=== PATIENT | female | born 1960 | race African-American/Black ===

== ENCOUNTER 2025-06-14 23:47 | Observation (INO) | payer SELFPAY ==
[~2025-06-14] VITALS: Ht 162.6 cm; Wt 90.9 kg
[2025-06-15 00:22] LABS: COVID AG,FIA SOURCE NASAL SWAB
[2025-06-15 00:48] LABS: SARS-COV2 (COVID) ANTIGEN,FIA Negative (Negative)
[2025-06-15 00:51] LABS: INFLUENZA TYPE A NEGATIVE FOR TYPE A (NEGATIVE); INFLUENZA TYPE B NEGATIVE FOR TYPE B (NEGATIVE)
[2025-06-15 01:27] LABS: PLATELET COUNT (AUTO) 371 K/uL (150-450); RED BLOOD CELL COUNT(AUTO) 4.95 MIL/uL (4.00-5.20); RED CELL DISTRIBUTION WIDTH 15.3 % (11.5-14.5); WHITE BLOOD COUNT (AUTO) 9.1 K/uL (4.5-11.0)
[2025-06-15 01:35] LABS: CALCIUM, TOTAL 8.9 mg/dL (8.8-10.5); CREATININE 0.79 mg/dL (0.60-1.30); GLOMERULAR FILTR. RATE CALC > 60 mL/min (>60); GLUCOSE,RANDOM 109 mg/dL (70-110); SODIUM SERUM 139 mmol/L (136-145); UREA NITROGEN, BLOOD 20 mg/dL (7-18)
[2025-06-15] MEDS: BENZONATATE 100 MG CAPSULE PO ONE (01:39)
[2025-06-15 01:44] LABS: TROPONIN I-HIGH SENSITIVITY 6 ng/L (<51)
[2025-06-15] MEDS ORDERED: MAGNESIUM HYDROXIDE SUSPENSION 30 ML UDCUP PO PRN (05:45)
[2025-06-15] MEDS ORDERED: ACETAMINOPHEN 325 MG TABLET PO PRN (05:45)
[2025-06-15] MEDS ORDERED: ONDANSETRON HCL 4 MG/2 ML VIAL IVP PRN (05:45)
[2025-06-15 06:27] LABS: APPEARANCE,URINE CLEAR (CLEAR); GLUCOSE, URINE (UA) NEGATIVE (NEGATIVE); LEUKOCYTE ESTERASE ,URINE SMALL (NEGATIVE); NITRATE,URINE NEGATIVE (NEGATIVE); OCCULT BLOOD,URINE NEGATIVE (NEGATIVE); SPECIFIC GRAVITIY, URINE 1.016 (1.003-1.030)
[2025-06-15 07:14] LABS: SQUAMOUS EPITHELIAL CELL,UR Few /LPF (None Seen)
[2025-06-15 07:20] VITALS: BP 176/81; PULSE 85; RESP 19; TEMP 98; O2SAT 97
[2025-06-15] MEDS: HEPARIN SODIUM,PORCINE 5,000 UNITS/ML VIAL SQ SCH (07:36)
[2025-06-15] MEDS ORDERED: AMLO-257 PO (07:47)
[2025-06-15] MEDS: FAMOTIDINE 20 MG TABLET PO SCH (08:49)
[2025-06-15] MEDS: CefTRIAXone 1 GM/DEXTROSE 50 ML IV SCH (10:00)
[2025-06-15] MEDS ORDERED: CIPR250T6 PO (10:21)
[2025-06-15] MEDS ORDERED: SODIUM CHLORIDE 0.9% 250 ML IV ONE (11:05)
[2025-06-15 11:45] VITALS: BP 156/84; PULSE 73; RESP 18; TEMP 97.8; O2SAT 97
[2025-06-15] MEDS: CIPROFLOXACIN HCL 500 MG TABLET PO ONE (12:00)
[2025-06-15] MEDS: ALBUTEROL SULFATE 2.5 MG/0.5 ML NEB SOLUTION NEB PRN (12:16)
[2025-06-15 14:00] VITALS: PULSE 86; RESP 20; O2SAT 99
== END 2025-06-15 13:30 | disposition home or self-care (01) ==
LOC: EMS 23:47 → EDH 06-15 05:40 → INTOOBSV 06-15 05:40 → 5N 06-15 08:29
PROVIDERS: ADMIT Internal Medicine; ATTEND Internal Medicine
DX: I10 Essential (primary) hypertension (principal); R06.09 Other forms of dyspnea; R05.3 Chronic cough; I89.0 Lymphedema, not elsewhere classified; N39.0 Urinary tract infection, site not specified; R00.1 Bradycardia, unspecified; R60.0 Localized edema; G47.9 Sleep disorder, unspecified; Z20.822 Contact with and (suspected) exposure to COVID-19; Z79.899 Other long term (current) drug therapy; Z98.890 Other specified postprocedural states
CPT/HCPCS: 71045; 99219; 80048; 81001; 83880; 84484; 85025; 87077; 87086; 87186; 87804; 36415; 93306; 94760; 94640; 99285; 93005; 87426; J0696; J7050; J1644; J7613